=== PATIENT | female | born 1990 | race Caucasian/White ===

== ENCOUNTER 2021-03-04 08:44 | Outpatient (CLI) | payer OTHER, SELFPAY ==
--- NOTE | ~2021-03-04 | US_ITS ---
EXAMINATION: US OB /maternal detail DATE: 03/04/2021 10:15 INDICATION: Second trimester anatomic survey TECHNIQUE: Real-time ultrasound of the pelvis was performed. COMPARISON: None. FINDINGS: There is a single living fetus in transverse lie. The placenta is anterior and 5.7 cm from the safety intern al cervical os. heart rate is 155 beats per minute (bpm). cardiac activity and mov ement are noted. The amniotic fluid index is subjectively normal. There is limited evaluation of the spine due to positioning. There appears to be central calyceal dilatation of one kidney up to 5 mm. The following anatomy was identified as normal: 4 chamber heart 3 vessel cord cord insertion urinary bladder stomach diaphragm ventricles cisterna magna cerebellum The following biometric data were obtained: Biparietal diameter (BPD): 4.9 cm; head circumference (HC): 18.1 cm; abdominal circumference (AC): 16 .2 cm; femur length (FL): 3.4 cm. These measurements are concordant. Estimated weight is 392 g +/- 58 g, which correlates with the 53rd percentile when 07/16/2021 is used as estimated date of delivery. As single measurements, these parameters are each equal to the following estimated gestational ages w ith ranges of +/- 2 standard deviations: BPD: 20 weeks 6 days +/- 1 weeks 5 days. HC: 20 weeks 4 days +/- 1 weeks 3 days. AC: 21 weeks 2 days +/- 2 weeks 0 days. FL: 20 weeks 6 days +/- 1 weeks 6 days. estimated gestational age based solely on measurements from this exam is 20 weeks 6 days +/- 1 weeks 3 days. IMPRESSION: 1. Single living fetus in transverse lie. 2. Estimated weight is 392 g +/- 58 g, which correlates with the 53rd percentile when 07/16/2021 is used as estimated date of delivery. 3. Limited evaluation of the spine due to positioning. 4. Possible central calyceal dilatation of one kidney up to 5 mm. Follow-up ultrasound after 32 weeks gestation is recommended. Reviewed, dictated and finalized at location A. IMPRESSION: 1. Single living fetus in transverse lie. 2. Estimated weight is 392 g +/- 58 g, which correlates with the 53rd per centile when 07/16/2021 is used as estimated date of delivery. 3. Limited evaluation of the spine due to positioning. 4. Possible central calyceal dilatation of one kidney up to 5 mm. Follow-up ult rasound after 32 weeks gestation is recommended.
== END 2021-03-04 08:45 | disposition home or self-care (01) ==
LOC: ANHIMG 08:50
PROVIDERS: Visit Provider Obstetrics & Gynecology
DX: Z36.9 Encounter for antenatal screening, unspecified (principal); Z3A.20 20 weeks gestation of pregnancy
CPT/HCPCS: 76805

== ENCOUNTER 2021-04-14 14:59 | Outpatient (CLI) | payer OTHER, SELFPAY ==
--- NOTE | ~2021-04-14 | US_ITS ---
EXAMINATION: US OB follow up DATE: 04/14/2021 15:52 INDICATION: Second trimester anatomic survey follow-up TECHNIQUE: Real-time ultrasound of the pelvis was performed. The interpreting radiologist was not pre sent for the study. COMPARISON: 03/04/2021 FINDINGS: There is a single living fetus in transverse lie. The placenta is anterior. cardiac a ctivity and movement are noted. heart rate is 136 beats per minute (bpm). The amniotic fl uid index is 17.7 cm which is normal. There is central calyceal dilatation of one kidney measuring up to 5 mm. The other kidney is unremarkable. The spine appears normal. The following biometric data were obtained: Biparietal diameter (BPD): 6.7 cm; head circumference (HC): 25.4 cm; abdominal circumference (AC): 22 .4 cm; femur length (FL): 4.9 cm. These measurements are concordant. Estimated weight is 1006 g +/- 150 g, which correlates with the 48th percentile when 07/16/2021 is used as estimated date of delivery. As single measurements, these parameters are each equal to the following estimated gestational ages w ith ranges of +/- 2 standard deviations: BPD: 27 weeks 1 days +/- 2 weeks 1 days. HC: 27 weeks 4 days +/- 2 weeks 0 days. AC: 26 weeks 6 days +/- 2 weeks 1 days. FL: 26 weeks 6 days +/- 2 weeks 1 days. estimated gestational age based solely on measurements from this exam is 27 weeks 1 days +/- 1 weeks 6 days. IMPRESSION: 1. Single living fetus in transverse lie. 2. Normal-appearing spine. 3. Mild central calyceal dilatation of one kidney. Follow-up ultrasound is recommended at gestational age of 32 weeks or greater. 4. Estimated weight is 1006 g +/- 150 g, which correlates with the 48th percentile when 07/17/19 22 is used as estimated date of delivery. Reviewed, dictated and finalized at location A. E OPERATOR IMPRESSION: 1. Single living fetus in transverse lie. 2. Normal-appearing spine. 3. Mild central calyceal dilatation of one kidney. Follow-up ultrasound is neville mmended at gestational age of 32 weeks or greater. 4. Estimated weight is 1006 g +/- 150 g, which correlates with the 48th p ercentile when 07/16/2021 is used as estimated date of delivery.
== END 2021-04-14 15:00 | disposition home or self-care (01) ==
PROVIDERS: PCP Obstetrics & Gynecology; Visit Provider Obstetrics & Gynecology
DX: Z36.2 Encounter for other antenatal screening follow-up (principal); Z3A.27 27 weeks gestation of pregnancy
CPT/HCPCS: 76816